=== PATIENT | male | born 1955 ===

== ENCOUNTER 2023-12-07 09:56 | Outpatient (CLI) | payer OTHER | END 2023-12-07 10:00 | disposition home or self-care (01) | LOC: SONOGRAMA 09:56 | PROVIDERS: ATTEND Pathology Anatomic Pathology | DX: D34 Benign neoplasm of thyroid gland (principal); E07.89 Other specified disorders of thyroid; E05.90 Thyrotoxicosis, unspecified without thyrotoxic crisis or storm ==